=== PATIENT | male | born 1940 | race Caucasian/White ===

== ENCOUNTER 2016-12-17 19:04 | Emergency (ER) | payer MEDICARE, OTHER ==
[~2016-12-17] VITALS: Ht 175.3 cm; Wt 124.5 kg
[~2016-12-17 19:04] MED LIST: ASPI-556 PO; CIPR-278 PO; FURO20 PO; LOSA1TAB37 PO; METF500T4 PO; METO25TA6 PO
[2016-12-17] MEDS ORDERED: GABA-531 PO (19:36)
[2016-12-17] MEDS ORDERED: APIX5TAB PO (19:36)
[2016-12-17 19:42] LABS: GLUCOSE,POINT OF CARE 146 MG/DL (70-110)
[2016-12-17] MEDS ORDERED: IPRATROPIUM BROMIDE 0.5 MG/2.5 ML NEB SOLUTION NEB ONE (20:15)
[2016-12-17] MEDS ORDERED: DEXAMETHASONE SOD PHOS 4 MG/ML 5 ML VIAL IVP ONE (20:15)
[2016-12-17] MEDS ORDERED: ALBUTEROL SULFATE 5 MG/ML 20 ML NEB SOLN [BULK] NEB ONE (20:15)
[2016-12-17 20:47] LABS: BASOPHILS % (AUTO) 0.5 % (0.0-2.0); EOSINOPHILS % (AUTO) 2.7 % (1.0-6.0); HEMATOCRIT 41.5 % (41-53); HEMOGLOBIN 13.9 g/dL (13.5-17.5); LYMPHOCYTES # (AUTO) 1.6 K/uL (1.0-4.8); LYMPHOCYTES % (AUTO) 21.2 % (22.0-44.0); MEAN CORPUSCULAR HGB CONC 33.5 G/dL (31.0-37.0); MEAN CORPUSCULAR VOLUME 84 fL (80-100); MONOCYTES # (AUTO) 0.7 K/uL (0.1-1.0); MONOCYTES % (AUTO) 8.7 % (2.0-9.0); NEUTROPHILS % (AUTO) 66.9 % (40.0-70.0); PLATELET COUNT (AUTO) 146 K/uL (150-450); RED BLOOD CELL COUNT(AUTO) 4.97 MIL/uL (4.50-5.90); RED CELL DISTRIBUTION WIDTH 15.5 % (11.5-14.5); WHITE BLOOD COUNT (AUTO) 7.5 K/uL (4.5-11.0)
[2016-12-17 21:21] VITALS: BP 116/80
[2016-12-17 21:40] LABS: ANION GAP 8 mmol/L (8-16); CARBON DIOXIDE 25 mmol/L (22-29); CHLORIDE 107 mmol/L (98-107); CREATININE 0.99 mg/dL (0.60-1.30); GLOMERULAR FILTR. RATE CALC > 60 mL/min (>60); POTASSIUM 3.7 mmol/L (3.5-5.1); SODIUM SERUM 140 mmol/L (136-145); UREA NITROGEN, BLOOD 14 mg/dL (7-18)
[2016-12-17 21:44] LABS: ALANINE AMINOTRANSFERASE 16 U/L (12-78); ALBUMIN 3.3 g/dL (3.4-5.0); ASPARTATE AMINOTRANSFERASE 15 U/L (15-37); BILIRUBIN,TOTAL 0.6 mg/dL (0.1-1.0); TOTAL PROTEIN, SERUM 6.8 g/dL (6.4-8.2)
[2016-12-18] MEDS ORDERED: 0.9% SODIUM CHLORIDE 5 ML NEB SOLUTION NEB ONE (14:25)
== END 2016-12-17 22:09 | disposition home or self-care (01) ==
LOC: EMS 19:06
DX: J18.9 Pneumonia, unspecified organism (principal); J98.01 Acute bronchospasm; E11.9 Type 2 diabetes mellitus without complications; G62.9 Polyneuropathy, unspecified; I10 Essential (primary) hypertension; I48.91 Unspecified atrial fibrillation; Z79.01 Long term (current) use of anticoagulants; Z79.82 Long term (current) use of aspirin; Z88.8 Allergy status to other drugs, medicaments and biological substances
CPT/HCPCS: 82962; 94640; 96374; 99285; J1100

== ENCOUNTER 2016-12-25 13:23 | Emergency (ER) | payer MEDICARE, OTHER ==
[~2016-12-25] VITALS: Ht 175.3 cm; Wt 121.4 kg
[~2016-12-25 13:23] MED LIST changes: +APIX5TAB PO; -CIPR-278 PO; +GABA-531 PO
[2016-12-25 13:45] VITALS: BP 140/90
[2016-12-25 13:47] LABS: GLUCOSE,POINT OF CARE 175 MG/DL (70-110)
== END 2016-12-25 15:13 | disposition home or self-care (01) ==
LOC: EMS 13:25
DX: J40 Bronchitis, not specified as acute or chronic (principal); I48.91 Unspecified atrial fibrillation; E11.9 Type 2 diabetes mellitus without complications; I10 Essential (primary) hypertension; Z88.8 Allergy status to other drugs, medicaments and biological substances
CPT/HCPCS: 71020; 82962; 99284

== ENCOUNTER 2017-06-27 13:35 | Emergency (ER) | payer MEDICARE, OTHER ==
[~2017-06-27] VITALS: Ht 175.3 cm; Wt 122.7 kg
[~2017-06-27 13:35] MED LIST changes: -ASPI-556 PO; -FURO20 PO
[2017-06-27 13:43] VITALS: BP 141/77
[2017-06-27] MEDS ORDERED: AMOX250C4 PO (14:02)
[2017-06-27 14:08] LABS: GLUCOSE,POINT OF CARE 110 MG/DL (70-110)
== END 2017-06-27 17:00 | disposition left against medical advice (07) ==
LOC: EMS 13:35
DX: R73.9 Hyperglycemia, unspecified (principal); Z53.21 Procedure and treatment not carried out due to patient leaving prior to being seen by health care provider
CPT/HCPCS: 82962

== ENCOUNTER 2018-03-02 09:23 | Emergency (ER) | payer MEDICARE, OTHER ==
[~2018-03-02 09:23] MED LIST changes: +AMOX250C4 PO; +METF-960 PO; -METF500T4 PO
== END 2018-03-02 10:54 | disposition left against medical advice (07) ==
LOC: EMS 09:23
DX: Z48.01 Encounter for change or removal of surgical wound dressing (principal); Z53.21 Procedure and treatment not carried out due to patient leaving prior to being seen by health care provider

== ENCOUNTER 2022-05-08 10:38 | Emergency (ER) | payer OTHER ==
[~2022-05-08] VITALS: Ht 177.8 cm; Wt 120.5 kg
[~2022-05-08 10:38] MED LIST changes: +GABA-1181 PO; -GABA-531 PO; +METF-1211 PO; -METF-960 PO
[2022-05-08 13:04] VITALS: BP 127/78
== END 2022-05-08 13:09 | disposition home or self-care (01) ==
LOC: EMS 10:47
DX: S76.011A Strain of muscle, fascia and tendon of right hip, initial encounter (principal); S66.911A Strain of unspecified muscle, fascia and tendon at wrist and hand level, right hand, initial encounter; S76.911A Strain of unspecified muscles, fascia and tendons at thigh level, right thigh, initial encounter; E11.9 Type 2 diabetes mellitus without complications; I10 Essential (primary) hypertension; I48.91 Unspecified atrial fibrillation; W19.XXXA Unspecified fall, initial encounter; Y93.89 Activity, other specified; Y92.89 Other specified places as the place of occurrence of the external cause; Y99.8 Other external cause status
CPT/HCPCS: 73502; 73552; 82962; 99284

== ENCOUNTER 2024-07-19 11:55 | Emergency (ER) | payer OTHER ==
[~2024-07-19 11:55] MED LIST changes: +AMOX-457 PO; -AMOX250C4 PO
== END 2024-07-19 14:23 | disposition home or self-care (01) ==
LOC: EMS 12:00
DX: T83.098A Other mechanical complication of other urinary catheter, initial encounter (principal); E11.9 Type 2 diabetes mellitus without complications; I10 Essential (primary) hypertension; Z88.8 Allergy status to other drugs, medicaments and biological substances; Z79.01 Long term (current) use of anticoagulants; Z79.84 Long term (current) use of oral hypoglycemic drugs; Z79.899 Other long term (current) drug therapy; Y84.6 Urinary catheterization as the cause of abnormal reaction of the patient, or of later complication, without mention of misadventure at the time of the procedure
CPT/HCPCS: 51702; 99284; Z7502

== ENCOUNTER 2024-11-14 20:56 | Inpatient (IN) | payer OTHER ==
[~2024-11-14] VITALS: Ht 177.8 cm; Wt 90.0 kg
[2024-11-14 22:00] LABS: GLUCOMETER DEV NAME(LOC) ERT.7; GLUCOSE,POINT OF CARE 119 MG/DL (70-110)
[2024-11-14 22:49] LABS: PLATELET COUNT (AUTO) 145 K/uL (150-450); RED BLOOD CELL COUNT(AUTO) 4.22 MIL/uL (4.50-5.90); RED CELL DISTRIBUTION WIDTH 16.3 % (11.5-14.5); WHITE BLOOD COUNT (AUTO) 7.3 K/uL (4.5-11.0)
[2024-11-14 22:52] LABS: CALCIUM, TOTAL 9.1 mg/dL (8.8-10.5); CREATININE 1.11 mg/dL (0.60-1.30); GLOMERULAR FILTR. RATE CALC > 60 mL/min (>60); GLUCOSE,RANDOM 115 mg/dL (70-110); SODIUM SERUM 136 mmol/L (136-145); UREA NITROGEN, BLOOD 16 mg/dL (7-18)
[2024-11-14 23:15] LABS: APPEARANCE,URINE CLEAR (CLEAR); GLUCOSE, URINE (UA) NEGATIVE (NEGATIVE); LEUKOCYTE ESTERASE ,URINE SMALL (NEGATIVE); NITRATE,URINE NEGATIVE (NEGATIVE); OCCULT BLOOD,URINE LARGE (NEGATIVE); SPECIFIC GRAVITIY, URINE 1.006 (1.003-1.030)
[2024-11-14] MEDS ORDERED: OxyCODONE HCL/ACETAMINOPHEN 5-325 MG TABLET PO PRN (23:30)
[2024-11-14] MEDS ORDERED: ONDANSETRON HCL 4 MG/2 ML VIAL IVP PRN (23:30)
[2024-11-14 23:43] LABS: SQUAMOUS EPITHELIAL CELL,UR Few /LPF (None Seen)
[2024-11-14] MEDS: SODIUM CHLORIDE 0.9% 1,000 ML IV ONE (23:45)
[2024-11-15] MEDS ORDERED: DEXTROSE 50%-WATER 25 GM/50 ML SYRINGE IVP PRN
[2024-11-15] MEDS: CefTRIAXone 1 GM/DEXTROSE 50 ML IV SCH (00:38)
[2024-11-15] MEDS: GABAPENTIN 300 MG CAPSULE PO ONE (00:55)
[2024-11-15 03:59] VITALS: BP 140/53; PULSE 70; RESP 18; TEMP 97.8; O2SAT 97
[2024-11-15] MEDS: DOCUSATE SODIUM 100 MG CAPSULE PO SCH (08:02)
[2024-11-15] MEDS: METOPROLOL TARTRATE 25 MG TABLET PO SCH (08:02)
[2024-11-15] MEDS: FAMOTIDINE 20 MG TABLET PO SCH (08:03)
[2024-11-15 08:04] VITALS: BP 124/65; PULSE 58; RESP 18; TEMP 97.7; O2SAT 100
[2024-11-15 11:13] LABS: PLATELET COUNT (AUTO) 121 K/uL (150-450); RED BLOOD CELL COUNT(AUTO) 3.92 MIL/uL (4.50-5.90); RED CELL DISTRIBUTION WIDTH 15.9 % (11.5-14.5); WHITE BLOOD COUNT (AUTO) 4.9 K/uL (4.5-11.0)
[2024-11-15 11:55] LABS: GLUCOMETER DEV NAME(LOC) 4E.2; GLUCOSE,POINT OF CARE 113 MG/DL (70-110)
[2024-11-15 11:56] LABS: GLUCOMETER DEV NAME(LOC) 4E.2; GLUCOSE,POINT OF CARE 108 MG/DL (70-110)
[2024-11-15] MEDS ORDERED: SODIUM CL IRRIG SOLN BOTTLE 250 ML IRRIG ONE (13:53)
[2024-11-15] MEDS: GABAPENTIN 300 MG CAPSULE PO SCH (14:29)
[2024-11-15] MEDS: ACETAMINOPHEN 325 MG TABLET PO PRN (14:30)
[2024-11-15] MEDS ORDERED: SODIUM CHLORIDE 0.9% IRRIG BTL 1,000 ML IRRIG ONE (15:41)
[2024-11-15 16:28] VITALS: BP 123/58; PULSE 80; RESP 20; TEMP 98.2; O2SAT 98
[2024-11-15] MEDS: INSULIN LISPRO 100 UNITS/ML SQ PRN (17:02)
[2024-11-15 19:31] VITALS: BP 138/73; PULSE 66; RESP 18; TEMP 97.5; O2SAT 97
[2024-11-15] MEDS ORDERED: WATER FOR IRRIGATION,STERILE 1000 ML SOLUTION BOTTLE ONE (20:12)
[2024-11-15] MEDS: POLYETHYLENE GLYCOL 3350 17 GM PACKET PO SCH (21:14)
[2024-11-15 21:16] LABS: GLUCOMETER DEV NAME(LOC) 4E.2; GLUCOSE,POINT OF CARE 143 MG/DL (70-110)
[2024-11-15 21:16] LABS: GLUCOMETER DEV NAME(LOC) 6N.1B; GLUCOSE,POINT OF CARE 142 MG/DL (70-110)
[2024-11-15 21:16] LABS: GLUCOMETER DEV NAME(LOC) 6N.1B; GLUCOSE,POINT OF CARE 126 MG/DL (70-110)
[2024-11-15] MEDS ORDERED: SODIUM CHLORIDE 0.9% 250 ML IV ONE (23:27)
[2024-11-16 06:13] VITALS: BP 146/88; PULSE 58; RESP 18; TEMP 97.9; O2SAT 99
[2024-11-16 06:58] LABS: PLATELET COUNT (AUTO) 140 K/uL (150-450); RED BLOOD CELL COUNT(AUTO) 3.88 MIL/uL (4.50-5.90); RED CELL DISTRIBUTION WIDTH 16.2 % (11.5-14.5); WHITE BLOOD COUNT (AUTO) 5.5 K/uL (4.5-11.0)
[2024-11-16 07:06] LABS: CALCIUM, TOTAL 8.9 mg/dL (8.8-10.5); CREATININE 0.85 mg/dL (0.60-1.30); GLOMERULAR FILTR. RATE CALC > 60 mL/min (>60); GLUCOSE,RANDOM 124 mg/dL (70-110); SODIUM SERUM 142 mmol/L (136-145); UREA NITROGEN, BLOOD 14 mg/dL (7-18)
[2024-11-16 08:38] VITALS: BP 107/62; PULSE 58; RESP 18; TEMP 97.7; O2SAT 100
[2024-11-16 10:54] VITALS: BP 133/72; PULSE 70; RESP 18; TEMP 97.6; O2SAT 99
[2024-11-16] MEDS: METOPROLOL TARTRATE 25 MG TABLET PO SCH (10:58)
[2024-11-16 12:16] LABS: GLUCOMETER DEV NAME(LOC) 4E.2; GLUCOSE,POINT OF CARE 188 MG/DL (70-110)
[2024-11-16 12:16] LABS: GLUCOMETER DEV NAME(LOC) 4E.2; GLUCOSE,POINT OF CARE 165 MG/DL (70-110)
[2024-11-16] MEDS ORDERED: SODIUM CHLORIDE 0.9% 500 ML IV ONE (15:59)
[2024-11-16 16:47] VITALS: BP 102/54; PULSE 78; RESP 18; TEMP 98; O2SAT 98
[2024-11-16 17:36] LABS: GLUCOMETER DEV NAME(LOC) 4E.2; GLUCOSE,POINT OF CARE 119 MG/DL (70-110)
[2024-11-16 19:12] VITALS: BP 106/51; PULSE 86; RESP 18; TEMP 97.5; O2SAT 98
[2024-11-16] MEDS ORDERED: WATER FOR IRRIGATION,STERILE 1000 ML SOLUTION BOTTLE ONE ×2 (19:59→20:00)
[2024-11-16] MEDS: SULFAMETHOX/TRIMETH DS 800-160 MG/TABLET PO SCH (20:34)
[2024-11-16 21:31] LABS: GLUCOMETER DEV NAME(LOC) 4E.2; GLUCOSE,POINT OF CARE 133 MG/DL (70-110)
[2024-11-16] MEDS ORDERED: SODIUM CHLORIDE 0.9% IRRIG BTL 1,000 ML IRRIG ONE (21:38)
[2024-11-17 07:05] LABS: PLATELET COUNT (AUTO) 137 K/uL (150-450); RED BLOOD CELL COUNT(AUTO) 3.74 MIL/uL (4.50-5.90); RED CELL DISTRIBUTION WIDTH 15.5 % (11.5-14.5); WHITE BLOOD COUNT (AUTO) 5.1 K/uL (4.5-11.0)
[2024-11-17 07:11] LABS: CALCIUM, TOTAL 8.7 mg/dL (8.8-10.5); CREATININE 0.85 mg/dL (0.60-1.30); GLOMERULAR FILTR. RATE CALC > 60 mL/min (>60); GLUCOSE,RANDOM 122 mg/dL (70-110); SODIUM SERUM 139 mmol/L (136-145); UREA NITROGEN, BLOOD 15 mg/dL (7-18)
[2024-11-17 07:15] VITALS: BP 116/66; PULSE 57; RESP 20; TEMP 98.7; O2SAT 98
[2024-11-17 08:41] LABS: GLUCOMETER DEV NAME(LOC) 6N.1B; GLUCOSE,POINT OF CARE 115 MG/DL (70-110)
[2024-11-17] MEDS: OMEGA-3/DHA/EPA/FISH OIL 500 MG CAPSULE PO SCH (09:00)
[2024-11-17 09:26] LABS: GLUCOMETER DEV NAME(LOC) 4E.2; GLUCOSE,POINT OF CARE 126 MG/DL (70-110)
[2024-11-17] MEDS ORDERED: POLY17PO62 PO (12:15)
[2024-11-17] MEDS ORDERED: SULF-261 PO (12:15)
[2024-11-17 17:26] LABS: GLUCOMETER DEV NAME(LOC) 4E.2; GLUCOSE,POINT OF CARE 107 MG/DL (70-110)
== END 2024-11-17 13:30 | disposition home or self-care (01) | DRG 699 ==
LOC: EMS 20:56 → EDH 23:29 → 4E 11-15 03:15
PROVIDERS: ADMIT Internal Medicine; ATTEND Internal Medicine
DX: T83.021A Displacement of indwelling urethral catheter, initial encounter (principal); I48.20 Chronic atrial fibrillation, unspecified; N39.0 Urinary tract infection, site not specified; N13.8 Other obstructive and reflux uropathy; S37.39XA Other injury of urethra, initial encounter; R31.0 Gross hematuria; Y73.8 Miscellaneous gastroenterology and urology devices associated with adverse incidents, not elsewhere classified; E11.40 Type 2 diabetes mellitus with diabetic neuropathy, unspecified; K59.00 Constipation, unspecified; N40.1 Benign prostatic hyperplasia with lower urinary tract symptoms; R33.8 Other retention of urine; J34.2 Deviated nasal septum; R16.1 Splenomegaly, not elsewhere classified; K80.20 Calculus of gallbladder without cholecystitis without obstruction; I10 Essential (primary) hypertension; X58.XXXA Exposure to other specified factors, initial encounter; Y93.89 Activity, other specified; Y99.8 Other external cause status; Y92.89 Other specified places as the place of occurrence of the external cause; Z79.84 Long term (current) use of oral hypoglycemic drugs; Z79.899 Other long term (current) drug therapy; Z79.01 Long term (current) use of anticoagulants; Z88.8 Allergy status to other drugs, medicaments and biological substances
CPT/HCPCS: 74176; 80048; 81001; 82962; 85025; 87040; 87081; 93005; 96360; 96361; 99285; G0378; J0696; J7030; J7040; J7050; 36415-L1; 36415-TC

== ENCOUNTER 2025-04-01 14:22 | Emergency (ER) | payer OTHER ==
[~2025-04-01] VITALS: Ht 177.8 cm; Wt 114.1 kg
[~2025-04-01 14:22] MED LIST changes: -AMOX-457 PO; +POLY17PO62 PO; +SULF1TAB94 PO
[2025-04-01 14:26] VITALS: BP 160/62; PULSE 87; RESP 18; TEMP 98.1; O2SAT 99
[2025-04-01 14:51] LABS: GLUCOMETER DEV NAME(LOC) ERT.7; GLUCOSE,POINT OF CARE 151 MG/DL (70-110)
[2025-04-01] MEDS ORDERED: ACET-66 PO (15:21)
[2025-04-01] MEDS ORDERED: BACI28.410 TP (15:21)
[2025-04-01] MEDS: ACETAMINOPHEN 500 MG TABLET PO ONE (15:47)
[2025-04-01] MEDS: LIDOCAINE 1% 10 ML VIAL SQ ONE (15:48)
[2025-04-01] MEDS: PERTUSS(ACELL),DIPH,TET/PF 0.5 ML SYRINGE [ADULT] IM. ONE (15:48)
[2025-04-01] MEDS ORDERED: PENI500T2 PO (17:10)
== END 2025-04-01 17:36 | disposition home or self-care (01) ==
LOC: EMS 14:22
DX: S01.411A Laceration without foreign body of right cheek and temporomandibular area, initial encounter (principal); S01.511A Laceration without foreign body of lip, initial encounter; S01.112A Laceration without foreign body of left eyelid and periocular area, initial encounter; S01.81XA Laceration without foreign body of other part of head, initial encounter; E11.40 Type 2 diabetes mellitus with diabetic neuropathy, unspecified; I10 Essential (primary) hypertension; I48.91 Unspecified atrial fibrillation; Z79.01 Long term (current) use of anticoagulants; Z79.899 Other long term (current) drug therapy; Z88.8 Allergy status to other drugs, medicaments and biological substances; Y08.89XA Assault by other specified means, initial encounter; Y93.89 Activity, other specified; Y92.89 Other specified places as the place of occurrence of the external cause; Y99.8 Other external cause status
CPT/HCPCS: 99285; 70450; 82962; 70486; 90715; 90471; 12015; J3490